=== PATIENT | female | born 1970 | race Caucasian/White ===

== ENCOUNTER 2017-12-06 01:44 | Observation (INO) | payer OTHER ==
[~2017-12-06] VITALS: Ht 157.5 cm; Wt 65.8 kg
[~2017-12-06 01:44] MED LIST: ACYC400 PO; AMOCLA875 PO; Atarax10 MG; Ativan1 MG PO; BUSP10 PO; CARB200 PO; CIPR250 PO; CLON.5 PO; CONEST.3; CYCL10 PO; DIVA250ER; FLUO20 PO; HALO5 PO; HYDACE5 PO; HYDACE7.5 PO; HYDCHL25 PO; HYDPAM50 PO; IBUHYD PO; IBUP800; IBUP800 PO; LEVFLO500 PO; LORA.5 PO; METO25 PO; METO50ER PO; METR500 PO; NAPR500 PO; NAPR550 PO; OLAN10 PO; OXYACE5T PO; PHENY100ER; PHENY100ER PO; POTCHL20ER PO; PRAZ1 PO; PREN-16 PO; PROACE100 PO; PROM25 PO; RXPROACE PO; SULTRIDS PO; TRAM50 PO; TRAZ100 PO; ZIPR60; Zyprexa10 MG PO; [UNRECOGNIZED DRUG - OTHER]; [UNRECOGNIZED DRUG - OTHER] OD
[2017-12-06 03:07] LABS: BASOPHILS ABSOLUTE AUTO 0.07 K/mm3 (0.00-0.23); BASOPHILS PERCENT AUTO 1 % (0-2); EOSINOPHILS ABSOLUTE AUTO 0.03 K/mm3 (0.00-0.68); EOSINOPHILS PERCENT AUTO 0 % (0-6); Hematocrit 40.1 % (33.0-51.0); Hemoglobin 13.9 g/dL (11.5-16.0); IMMATURE GRAN ABSOLUTE AUTO 0.03 K/mm3 (0.00-0.10); IMMATURE GRAN PERCENT AUTO 0 % (0-1); LYMPHOCYTES ABSOLUTE AUTO 3.23 K/mm3 (0.84-5.20); LYMPHOCYTES PERCENT AUTO 27 % (21-46); MONOCYTES ABSOLUTE AUTO 0.82 K/mm3 (0.16-1.47); MONOCYTES PERCENT AUTO 7 % (4-13); Mean Corpuscular HGB 31.4 pg (26.0-34.0); Mean Corpuscular HGB Conc 34.7 g/dL (31.5-36.5); Mean Corpuscular Volume 91 fL (80-100); Mean Platelet Volume 9.6 fL (9.1-12.4); NEUTROPHILS ABSOLUTE AUTO 7.61 K/mm3 (1.96-9.15); NEUTROPHILS PERCENT AUTO 64 % (41-73); Platelet Count 220 K/mm3 (150-400); RDW Coefficient Variation 13.4 % (11.7-14.2); RDW Standard Deviation 45.1 fL (35.1-46.3); Red Blood Cell Count 4.42 M/mm3 (3.80-5.20); White Blood Cell Count 11.79 K/mm3 (4.00-11.30)
[2017-12-06 03:31] LABS: Alanine Aminotransfer (ALT/SGP 18 U/L (12-78); Albumin, Blood 4.2 g/dL (3.4-5.0); Albumin/Globulin Ratio 1.1 (0.8-1.8); Alk Phos 59 U/L (50-136); Anion Gap 6 mmol/L (6-16); Aspartate Aminotrans (AST/SGOT 21 U/L (12-37); Bilirubin, Total 0.8 mg/dL (0.1-1.0); Blood Urea Nitrogen 13 mg/dL (8-24); Bun/Creatinine Ratio 16.9 (12.0-20.0); CO2, Blood 26 mmol/L (21-32); Calcium, Blood 9.2 mg/dL (8.5-10.1); Chloride, Blood 105 mmol/L (98-108); Creatinine, Blood 0.77 mg/dL (0.40-1.00); Ethanol (Alcohol), Blood, Med <3 mg/dL; Globulin, Blood 3.8 g/dL (2.2-4.0); Glomerular Filtration Rate >60 (60-); Glucose, Blood 116 mg/dL (70-99); Potassium, Blood 3.3 mmol/L (3.5-5.5); Salicylate 7.6 mg/dL (2.8-20.0); Sodium, Blood 137 mmol/L (136-145)
[2017-12-06 03:35] LABS: Acetaminophen, Random <2.0 ug/mL (10.0-30.0)
[2017-12-06 10:19] LABS: Source, Urine Clean Catch
[2017-12-06 10:24] LABS: Bilirubin, Urine Neg (Neg); Blood, Urine 1+ (Neg); Glucose Qualitative, Urine Neg (Neg); Ketones, Urine 1+ (Neg); Leukocyte Esterase, Urine 1+ (Neg); Nitrite, Urine Neg (Neg); Protein, Urine 2+ (Neg); Specific Gravity, Urine 1.025 (1.003-1.022); Urobilinogen, Urine 1+ (Normal)
[2017-12-06 10:43] LABS: U Amphetamine Screen Not Detected; U Barbituate Screen Not Detected; U Benzodiazapine Screen DETECTED; U Buprenorphine Screen Not Detected; U Cannabinoids Screen DETECTED; U Cocaine Screen Not Detected; U Methadone Screen Not Detected; U Methamphetamine Screen Not Detected; U Opiates Screen Not Detected; U Oxycodone Screen Not Detected; U Phencyclidine Screen Not Detected; U Propoxyphene Screen Not Detected
[2017-12-06 10:44] LABS: Appearance, Urine Clear (Clear); Color, Urine Yellow (P-Yellow)
[2017-12-06 10:45] LABS: Hyaline Casts Rare /lpf (0-2); Mucus Light (0-Heavy)
[2017-12-06 10:59] LABS: Amorphous Mod (0-Heavy); Bacteria Not Seen /hpf; Red Blood Cells, Urine 0-2 /hpf (0-2); Squamous Epithelial Cells Few /hpf (Few)
[2017-12-08] MEDS ORDERED: Zyprexa10 MG PO (13:33)
[2018-07-17] MEDS ORDERED: HYDHCL25 PO (14:03)
[2018-07-17] MEDS ORDERED: Allergy Relief10 M1 PO (14:04)
[2018-07-17] MEDS ORDERED: DICLOFENAC SOD100 G1 TOP (14:04)
[2018-07-17] MEDS ORDERED: ZESTORETIC 20-251 EA PO (14:05)
[2018-07-17] MEDS ORDERED: ARIPIPRAZOLE5 MG PO (14:05)
[2018-07-18] MEDS ORDERED: OLAN10 PO ×2 (05:48→05:49)
[2018-08-12] MEDS ORDERED: OLAN10 PO (18:42)
[2018-08-13] MEDS ORDERED: OLAN5 PO (12:14)
== END 2017-12-08 13:50 | disposition home or self-care (01) ==
LOC: ER 01:44 → EOR 01:45
PROVIDERS: Emergency Medicine
DX: F15.959 Other stimulant use, unspecified with stimulant-induced psychotic disorder, unspecified (principal); R45.851 Suicidal ideations; F25.9 Schizoaffective disorder, unspecified; F32.9 Major depressive disorder, single episode, unspecified; I10 Essential (primary) hypertension; M79.7 Fibromyalgia; J45.909 Unspecified asthma, uncomplicated; F17.210 Nicotine dependence, cigarettes, uncomplicated; Z88.5 Allergy status to narcotic agent
CPT/HCPCS: 80053; 81001; 81025; 84443; 85025; 87086; 96372; 99285; G0378; G0480; J1200; J1630; J2060; Q3014

== ENCOUNTER 2017-12-21 09:05 | Emergency (ER) | payer OTHER ==
[~2017-12-21] VITALS: Ht 157.5 cm; Wt 63.5 kg
== END 2017-12-21 12:06 | disposition home or self-care (01) ==
LOC: ER 09:05
DX: S16.1XXA Strain of muscle, fascia and tendon at neck level, initial encounter (principal); S20.229A Contusion of unspecified back wall of thorax, initial encounter; S70.01XA Contusion of right hip, initial encounter; J45.909 Unspecified asthma, uncomplicated; I10 Essential (primary) hypertension; F17.210 Nicotine dependence, cigarettes, uncomplicated; Z88.5 Allergy status to narcotic agent; Z88.6 Allergy status to analgesic agent; Z88.8 Allergy status to other drugs, medicaments and biological substances; Y08.89XA Assault by other specified means, initial encounter
CPT/HCPCS: 72040; 72070; 99283

== ENCOUNTER 2018-05-31 00:02 | Observation (INO) | payer OTHER ==
[~2018-05-31] VITALS: Ht 162.6 cm; Wt 54.4 kg
[2018-05-31 02:15] LABS: BASOPHILS ABSOLUTE AUTO 0.06 K/mm3 (0.00-0.23); BASOPHILS PERCENT AUTO 1 % (0-2); EOSINOPHILS ABSOLUTE AUTO 0.06 K/mm3 (0.00-0.68); EOSINOPHILS PERCENT AUTO 1 % (0-6); Hematocrit 39.6 % (33.0-51.0); Mean Corpuscular HGB 32.6 pg (26.0-34.0); Mean Corpuscular HGB Conc 35.4 g/dL (31.5-36.5); Mean Corpuscular Volume 92 fL (80-100); Mean Platelet Volume 10.4 fL (9.1-12.4); Platelet Count 201 K/mm3 (150-400); RDW Coefficient Variation 13.1 % (11.7-14.2); RDW Standard Deviation 44.1 fL (35.1-46.3); White Blood Cell Count 12.28 K/mm3 (4.00-11.30)
[2018-05-31 02:17] LABS: IMMATURE GRAN ABSOLUTE AUTO 0.02 K/mm3 (0.00-0.10); IMMATURE GRAN PERCENT AUTO 0 % (0-1); LYMPHOCYTES PERCENT AUTO 36 % (21-46); MONOCYTES ABSOLUTE AUTO 1.07 K/mm3 (0.16-1.47); MONOCYTES PERCENT AUTO 9 % (4-13); NEUTROPHILS ABSOLUTE AUTO 6.67 K/mm3 (1.96-9.15); NEUTROPHILS PERCENT AUTO 54 % (41-73)
[2018-05-31 02:40] LABS: Alanine Aminotransfer (ALT/SGP 25 U/L (12-78); Albumin, Blood 4.5 g/dL (3.4-5.0); Albumin/Globulin Ratio 1.2 (0.8-1.8); Alk Phos 68 U/L (50-136); Anion Gap 12 mmol/L (6-16); Aspartate Aminotrans (AST/SGOT 41 U/L (12-37); Bilirubin, Total 1.3 mg/dL (0.1-1.0); Blood Urea Nitrogen 19 mg/dL (8-24); CO2, Blood 21 mmol/L (21-32); Chloride, Blood 105 mmol/L (98-108); Ethanol (Alcohol), Blood, Med <3 mg/dL; Globulin, Blood 3.9 g/dL (2.2-4.0); Glomerular Filtration Rate >60 (60-); Glucose, Blood 92 mg/dL (70-99); Potassium, Blood 3.5 mmol/L (3.5-5.5); Salicylate 9.4 mg/dL (2.8-20.0); Sodium, Blood 138 mmol/L (136-145); Total Protein, Blood 8.4 g/dL (6.4-8.2)
[2018-05-31 02:46] LABS: Acetaminophen, Random <2.0 ug/mL (10.0-30.0)
[2018-05-31 03:03] LABS: Source, Urine Voided
[2018-05-31 03:07] LABS: Bilirubin, Urine Neg (Neg); Blood, Urine 1+ (Neg); Glucose Qualitative, Urine Neg (Neg); Ketones, Urine 3+ (Neg); Leukocyte Esterase, Urine 1+ (Neg); Nitrite, Urine Neg (Neg); Protein, Urine Neg (Neg); Urobilinogen, Urine NORM (Normal)
[2018-05-31 03:14] LABS: Appearance, Urine Clear (Clear); Color, Urine Amber (P-Yellow)
[2018-05-31 03:15] LABS: Amorphous Light (0-Heavy); Bacteria Few /hpf; Red Blood Cells, Urine 0-2 /hpf (0-2); Squamous Epithelial Cells Few /hpf (Few)
[2018-05-31 03:17] LABS: U Amphetamine Screen Not Detected; U Barbituate Screen Not Detected; U Benzodiazapine Screen Not Detected; U Buprenorphine Screen Not Detected; U Cannabinoids Screen DETECTED; U Cocaine Screen Not Detected; U Methadone Screen Not Detected; U Methamphetamine Screen Not Detected; U Opiates Screen Not Detected; U Oxycodone Screen Not Detected; U Phencyclidine Screen Not Detected; U Propoxyphene Screen Not Detected
[2018-05-31] MEDS ORDERED: OLAN10 PO (19:37)
== END 2018-06-01 19:44 | disposition home or self-care (01) ==
LOC: ER 00:02 → EOR 00:03
PROVIDERS: Emergency Medicine
DX: F25.9 Schizoaffective disorder, unspecified (principal); F23 Brief psychotic disorder; F17.210 Nicotine dependence, cigarettes, uncomplicated; Z88.8 Allergy status to other drugs, medicaments and biological substances; Z88.6 Allergy status to analgesic agent; Z79.899 Other long term (current) drug therapy
CPT/HCPCS: 80053; 81001; 81025; 84443; 85025; 87086; 96372; 99285; G0378; G0480; J2060; Q3014

== ENCOUNTER 2018-11-01 19:04 | Emergency (ER) | payer OTHER ==
[~2018-11-01] VITALS: Ht 167.6 cm; Wt 63.5 kg
[~2018-11-01 19:04] MED LIST changes: +ARIPIPRAZOLE5 MG PO; +Allergy Relief10 M1 PO; +DICLOFENAC SOD100 G1 TOP; +HYDHCL25 PO; +OLAN5 PO; +ZESTORETIC 20-251 EA PO
[2018-11-01] MEDS ORDERED: OLAN10 PO (19:33)
== END 2018-11-01 19:40 | disposition home or self-care (01) ==
LOC: ER 19:04
DX: F25.9 Schizoaffective disorder, unspecified (principal); Z59.0 Homelessness; J44.9 Chronic obstructive pulmonary disease, unspecified; F17.210 Nicotine dependence, cigarettes, uncomplicated
CPT/HCPCS: 99283